=== PATIENT | female | born 1965 | race Caucasian/White ===

== ENCOUNTER 2023-07-28 15:59 | Emergency (ER) | payer BC, MEDICAID, SELFPAY ==
[2023-07-28 16:02] VITALS: BP 158/108; PULSE 91; RESP 16; TEMP 36; O2SAT 95; BMI 28.1
--- NOTE | 2023-07-28 16:16 | RAD_ITS ---
STUDY: X-RAY - SACRUM/COCCYX REASON FOR EXAM: Female, 58 years old. injury TECHNIQUE: 3 view(s) of the sacrum and coccyx were obtained. COMPARISON: None. 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 Normal visualized sacral ala and fused sacral bodies. Normal sacrococcygeal junction with a normal angulation. Normal coccygeal segments. The presacral soft tissue structures are unremarkable. There is no demonstrated fracture. Pelvic calcifications most compatible with phleboliths. RAD/Sacrum-Coccyx min 2 Views IMPRESSION: No distinct fracture or subluxation seen. Electronically Signed: Joyce Miller MD at 17:00 EST ,
--- NOTE | 2023-07-28 16:17 | EDS_ITS ---
HPI HPI - Fall History of Present Illness Chief Complaint: Fall Informant: patient Occured/Mechanism Occurred: Days (3 days ago) Narrative Narrative: Patient presents with a fall 3 days ago. She fell on ice and landed on her buttocks. She has continued pain to her tailbone area. She states pain is starting to move up into her lower back. She has been able to ambulate. She is the most uncomfortable when sitting or try to get in and out of a vehicle. She has been able to urinate and have normal bowel movements. [facility] Medical History (Updated 07/28/23 @ 17:[address] Camryn Clemons MD) Bone spur of right foot Gout Hypertension Migraines Obstructive sleep apnea Palpitations Home Medications albuterol sulfate 90 mcg/actuation aerosol inhaler 2 puff inhalation Q4H PRN 07/28/23 [History Last Taken Unknown] cyclobenzaprine 10 mg tablet 10 mg PO TID PRN Muscle Spasm #20 TABLETS 07/28/23 [Rx Last Taken Unknown] hydrocodone-acetaminophen 5-325mg 5mg-325mg 1 tab PO Q6H PRN PRN Pain 3 days #10 TABLETS 07/28/23 [Rx Last Taken Unknown] lifitegrast 5 % eye drops in a dropperette (Xiidra) 1 drp ophthalmic (eye) BID 07/28/23 [History Last Taken Unknown] meloxicam 7.5 mg tablet 7.5 - 15 mg PO DAILY 07/28/23 [History Last Taken Unknown] mometasone-formoterol HFA 200 mcg-5 mcg/actuation aerosol inhaler (Dulera) 2 puff inhalation DAILY 07/28/23 [History Last Taken Unknown] ondansetron HCl 4 mg tablet 4 mg PO Q8H PRN 07/28/23 [History Last Taken Un known] propranolol 10 mg tablet 10 mg PO QHS 07/28/23 [History Last Taken Unknown] zolmitriptan 5 mg tablet (Zomig) 5 mg PO PRN PRN migraine headache 07/28/23 [History Last Taken Unknown] Allergy/AdvReac Type Severity Reaction Status Date / Time tiotropium Allergy Severe Anaphylaxis Verified 07/28/23 16:01 [From Spiriva with HandiHaler] adhesive Allergy Intermediate Hives Verified 07/28/23 16:01 Social History Smoking Status: Never smoker ROS ROS ED Constitutional Constitutional ED: Denies chills or fever(s) ENT ENT ED: Denies rhinorrhea or sore throat Cardiovascular Cardiovascular: Denies chest pain Respiratory/Chest Respiratory/Chest: Denies cough or dyspnea Gastrointestinal Gastrointestinal: Denies abdominal pain, nausea or vomiting Genitourinary Genitourinary ED: Denies difficulty urinating or dysuria Musculoskeletal Musculoskeletal: Reports back pain; Denies extremity pain Integumentary Denies Abrasions or rash Neurologic Neurologic: Denies headache(s), paresthesias or weakness Psychiatric Psychiatric: Denies anxiety or depression Allergic/Immunologic Allergic/Immunologic ED: Denies lip swelling or urticaria EXAM Physical Exam Const Vital Signs: 07/28/23 16:02 07/28/23 16:34 Temperature 96.8 F L Temperature Source Temporal Pulse Rate 91 Respiratory Rate 16 Respiratory Effort Normal Non-Labored Respiratory Depth Normal Respiratory Pattern Normal Blood Pressure 158/108 H Blood Pressure Mean 124 Pulse Ox 95 Oxygen Delivery Method Room Air Room Air Positive well nourished and well developed General Appearance ED: well developed HEENT Reports normocephalic Eyes EOMs intact bilaterally Neck no lymphadenopathy Chest Wall inspection of chest normal and palpation of chest normal Resp normal respiratory effort and clear to auscultation bilaterally Cardio regular rate and regular rhythm GI non-tender Back/Spine Back/Spine Narrative: Reproducible tenderness over the sacrum and coccyx. Mild tenderness in the lumbar paraspinal muscles. Neuro oriented x3, moves all extremities, no focal motor deficits and no sensory deficits noted Psych mental status grossly normal MDM MDM MDM Narrative Medical decision making narrative: Patient sent for radiographic images of the pelvis as well as the sacrum and coccyx to evaluate for potential fracture. Radiography Diagnostic Testing: Clinical Impression(s) from Imaging Studies Sacrum and Coccyx X-Ray 07/28/23 16:16 IMPRESSION: No distinct fracture or subluxation seen. Electronically Signed: Joyce Miller MD at 17:00 EST , Pelvis X-Ray 07/28/23 16:20 IMPRESSION: Minor degenerative disease of bilateral hips and bilateral SI joints, otherwise unremarkable exam with no distinct fracture or subluxation. Electronically Signed: Joyce Miller MD at 16:59 EST , Treatment and Re-Evaluation Narrative: Pelvis and sacrum/coccyx x-rays per my interpretation reveal no evidence of acute displaced fracture. Radiology interpretation reviewed and agrees. Test results discussed with the patient. She will be given prescription for [place] as well as Flexeril to help with muscle spasm. We did discuss the potential constipating side effects. Return instructions given. Discharge Plan Triage Chief Complaint: Fall ED Provider: Camryn Clemons Dx/Rx/DC Orders Clinical Impression: Coccygeal contusion Instructions: ED Coccyx or Sacrum Contusion Prescriptions: New hydrocodone-acetaminophen 5-325 mg tablet 1 tab PO Q6H PRN PRN (Reason: Pain) 3 Days Qty: 10 0RF cyclobenzaprine 10 mg tablet 10 mg PO TID PRN (Reason: Muscle Spasm) Qty: 20 0RF No Action propranolol 10 mg tablet 10 mg PO QHS meloxicam 7.5 mg tablet 7.5 - 15 mg PO DAILY Patient Comments: TAKE 1 TABLET BY MOUTH EVERY DAY NEEDED FOR PAIN . TAKE WITH FOOD Dulera 200-5 mcg/actuation HFA aerosol inhaler 2 puff INHALATION DAILY Patient Comments: INHALE 1 (ONE) PUFF (200 MCG TOTAL) 2 (TWO) TIMES A DAY . zolmitriptan [Zomig] 5 mg tablet 5 mg PO PRN PRN (Reason: migraine headache) Rx Instructions: do not exceed 2 doses per 24 hrs ondansetron HCl 4 mg tablet 4 mg PO Q8H PRN Patient Comments: TAKE 1 TABLET (4 MG TOTAL) BY MOUTH EVERY 8 HOURS NEEDED FOR NAUSEA albuterol sulfate 90 mcg/actuation HFA aerosol inhaler 2 puff INHALATION Q4H PRN Patient Comments: INHALE 2 (TWO) PUFFS BY MOUTH EVERY 4 TO 6 HOURS NEEDED FOR WHEEZING . Xiidra 5 % dropperette 1 drp ophthalmic (eye) BID Patient Comments: INSTILL 1 DROP INTO BOTH EYES TWICE A DAY DIRECTED Primary Care Provider: BRAXTON NICOEL Referrals: BRAXTON NICOLE [Other] - 1-2 Weeks NOT,DEFINED [Non-Staff] - Disposition Disposition: Home, Self Care
--- NOTE | 2023-07-28 16:20 | RAD_ITS ---
STUDY: X-RAY - PELVIS REASON FOR EXAM: Female, 58 years old. injury TECHNIQUE: One view of the pelvis was obtained. COMPARISON: None. FINDINGS: There is a non-specific bowel gas pattern. Normal visualized soft tissue structures. There are multiple calcified phleboliths. There is narrowing with cortical sclerosis and osteophyte formation of the sacroiliac joint consistent with degenerative osteoarthritic changes. Normal visualized bilateral superior and inferior pubic rami. Normal pubic symphysis. Normal ischial tuberosities. Normal visualized right femoral head. There is minimal osteoarthritic spur formation of the right acetabular rim. There is mild articular joint space narrowing of the right hip. Normal visualized left femoral head. There is minimal osteoarthritic spur formation of the left acetabular rim. There is mild articular joint space narrowing of the left hip. 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 Electronically Signed: Joyce Miller MD at 16:59 EST ,
--- OUTSIDE RECORDS SUMMARY | 2023-07-28 16:22 | XMS RPT_ITS | CCD ---
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 Specialty Start Date End Date Braxton Kat CNP [address] [place] [address] PCP - General Nurse Practitioner 12/13/21 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 Relationship Specialty Start Date End Date Braxton Kat CNP [address] [place] [address] PCP - General Nurse Practitioner 12/13/21 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 Relationship Specialty Start Date End Date Braxton Kat CNP [address] [place] [address] PCP - General Nurse Practitioner 12/13/21 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 Relationship Specialty Start Date End Date Braxton Kat, TUTORIAL [employer]ORATORY SUPERVISOR [address] [place] [address] PCP - General Nurse Practitioner 12/13/21 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 FOR RECORDS PERTAINING TO PATIENTS WHO ARE OR HAVE BEEN ENROLLED IN A CHEMICAL DEPENDENCY/SUBSTANCEABUSE PROGRAM, SOME INFORMATION MAY BE OMITTED. This clinical summary was aggregated from multiple sources. Caution should be exercised in using it in the provision of clinical care. This summary normalizes information from multiple sources, and as a consequence, information in this document may materially change the coding, format and clinical context of patient data. In addition, data may be omitted in some cases. CLINICAL DECISIONS SHOULD BE BASED ON THE PRIMARY CLINICAL RECORDS. [employer] provides no warranty or guarantee of the accuracy or completeness of information in this document.
== END 2023-07-28 17:32 | disposition home or self-care (01) ==
PROVIDERS: Emergency Provider Emergency Medicine; Visit Provider Emergency Medicine
DX: S30.0XXA Contusion of lower back and pelvis, initial encounter (principal); G47.33 Obstructive sleep apnea (adult) (pediatric); I10 Essential (primary) hypertension; Z79.899 Other long term (current) drug therapy; W19.XXXA Unspecified fall, initial encounter
CPT/HCPCS: 72170; 72220; 99282